=== PATIENT | male | born 1990 | race Two or more races ===

== ENCOUNTER 2016-08-28 18:45 | Emergency (ER) | payer SELFPAY ==
[~2016-08-28] VITALS: Ht 172.7 cm; Wt 86.2 kg
[2016-08-28 18:37] VITALS: BP 113/72
[~2016-08-28 18:45] MED LIST: KEPPRA500 M4 ORAL
[2016-08-28] MEDS ORDERED: Ketorolac 30mg Inj IV ONE (19:00)
[2016-08-28] MEDS ORDERED: LORazepam Inj 2mg/ml 1ml IV ONE (19:00)
[2016-08-28] MEDS ORDERED: levETIRAcetam 500 MG in D5W 110 ML IVPB ONE (19:00)
[2016-08-28 19:11] LABS: BASOPHILS % (AUTO) 1.3 % (0.0-2.0); EOSINOPHILS % (AUTO) 0.2 % (0.0-3.0); LYMPHOCYTES % (AUTO) 10.5 % (20.0-45.0); MEAN CORPUSCULAR HEMOGLOBIN 30.7 PG (27.0-31.0); MEAN CORPUSCULAR HGB CONC 33.9 G/DL (32.0-36.0); MEAN CORPUSCULAR VOLUME 90 FL (80-99); MEAN PLATELET VOLUME 7.9 FL (6.5-10.1); MONOCYTES % (AUTO) 3.8 % (1.0-10.0); NEUTROPHILS % (AUTO) 84.3 % (45.0-75.0); PLATELET COUNT 286 K/UL (150-450); RED BLOOD COUNT 5.23 M/UL (4.70-6.10); WHITE BLOOD COUNT 14.1 K/UL (4.8-10.8)
[2016-08-28 19:25] LABS: ALANINE AMINOTRANSFERASE 10 U/L (3-41); ALBUMIN/GLOBULIN RATIO 1.6 (1.0-2.7); ASPARTATE AMINO TRANSFERASE 17 U/L (5-40); CHLORIDE 93 mEQ/L (98-107); CREATININE 1.2 mg/dL (0.7-1.2); GLOMERULAR FILTRATION RATE > 60 mL/min (>60); HEMOLYSIS 38; POTASSIUM 5.1 mEQ/L (3.4-4.9); SODIUM 136 mEQ/L (135-145); TOTAL PROTEIN 7.8 g/dL (6.6-8.7)
--- NOTE | 2016-08-28 19:36 | Emergency Room Report ---
History of Present Illness General Chief Complaint: Seizure Source: Patient, EMS Present Illness HPI Patient presents with seizure activity He reports his last seizure was about 2 weeks ago He associates his seizures with stressful situations Reports that again this happened earlier today at work Patient states that he seen multiple neurologists and has had several EEGs And multiple imaging studies Denies any chest pain or shortness of breath Had a mild 3/10 pounding headache on the right side at this time He reports having a CAT scan on his last visit to the ER as well Denies any focal weakness Patient was taking Keppra previously but is not taking any antiepileptics at this time Allergies: Coded Allergies: No Known Allergies (Unverified , 08/28/16) Patient History Past Medical History: see triage record Pertinent Family History: none Reviewed Nursing Documentation: PMH: Agreed, PSxH: Agreed Nursing Documentation-PMH Hx Seizures: Yes Review of Systems All Other Systems: negative except mentioned in HPI Physical Exam Vital Signs Date Time Temp Pulse Resp B/P Pulse Ox O2 Delivery O2 Flow Rate FiO2 08/28/16 18:27 98 18 133/79 98 Room Air 08/28/16 18:37 97.8 Sp02 EP Interpretation: reviewed, normal General Appearance: well appearing, no apparent distress Head: normocephalic, atraumatic Eyes: bilateral eye EOMI, bilateral eye PERRL ENT: hearing grossly normal, normal pharynx, TMs + canals normal, uvula midline Neck: full range of motion, supple, no meningismus, no bony tend Respiratory: lungs clear, normal breath sounds, no rhonchi, no respiratory distress, no retraction, no accessory muscle use Cardiovascular #1: normal peripheral pulses, regular rate, rhythm, no edema, no gallop, no JVD, no murmur Gastrointestinal: normal bowel sounds, non tender, soft, no mass, no organomegaly, non-distended, no guarding, no hernia, no pulsatile mass, no rebound Genitourinary: no CVA tenderness Musculoskeletal: normal inspection Neurologic: oriented x3, responsive, 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, motor strength/ tone normal, sensory intact Psychiatric: mood/affect normal Skin: palpation normal, abrasions - right finger Lymphatic: normal inspection, no adenopathy Medical Decision Making Diagnostic Impression: Primary Impression: Seizure disorder ER Course Patient reports having multiple CAT scan imaging recently just says 2 weeks ago This was therefore not obtained today the patient has GCS 15 awake and alert has no focality to his exam Patient is also not on any antiepileptic medications at this time I discussed with him that he is not allowed to drive or operate heavy machinery Patient verbalizes understanding of this He did initially state that his seizures appear to be able to be controlled and that he feels they are stress-induced however DMV report has been faxed and the patient is aware of the consequences Please note the patient did have some mild dehydration on his blood work was given over 1-1/2 L of IV hydration Labs Test 08/28/16 19:00 White Blood Count 14.1 K/UL (4.8-10.8) Red Blood Count 5.23 M/UL (4.70-6.10) Hemoglobin 16.0 G/DL (14.2-18.0) Hematocrit 47.3 % (42.0-52.0) Mean Corpuscular Volume 90 FL (80-99) Mean Corpuscular Hemoglobin 30.7 PG (27.0-31.0) Mean Corpuscular Hemoglobin Concent 33.9 G/DL (32.0-36.0) Red Cell Distribution Width 11.0 % (11.6-14.8) Platelet Count 286 K/UL (150-450) Mean Platelet Volume 7.9 FL (6.5-10.1) Neutrophils (%) (Auto) 84.3 % (45.0-75.0) Lymphocytes (%) (Auto) 10.5 % (20.0-45.0) Monocytes (%) (Auto) 3.8 % (1.0-10.0) Eosinophils (%) (Auto) 0.2 % (0.0-3.0) Basophils (%) (Auto) 1.3 % (0.0-2.0) Sodium Level 136 mEQ/L (135-145) Potassium Level 5.1 mEQ/L (3.4-4.9) Chloride Level 93 mEQ/L (98-107) Carbon Dioxide Level 14 mEQ/L (20-30) Anion Gap 29 (5-15) Blood Urea Nitrogen 15 mg/dL (7-23) Creatinine 1.2 mg/dL (0.7-1.2) Estimat Glomerular Filtration Rate > 60 mL/min (>60) Glucose Level 200 mg/dL (74-106) Calcium Level 10.0 mg/dL (8.6-10.2) Total Bilirubin 0.9 mg/dL (0.0-1.2) Aspartate Amino Transf (AST/SGOT) 17 U/L (5-40) Alanine Aminotransferase (ALT/SGPT) 10 U/L (3-41) Alkaline Phosphatase 107 U/L (40-129) Total Protein 7.8 g/dL (6.6-8.7) Albumin 4.9 g/dL (3.5-5.2) Globulin 2.9 g/dL Albumin/Globulin Ratio 1.6 (1.0-2.7) Rhythm Strip Diag. Results EP Interpretation: yes Rate: 77 Rhythm: NSR, no PVC's, no ectopy Last Vital Signs Date Time Temp Pulse Resp B/P Pulse Ox O2 Delivery O2 Flow Rate FiO2 08/28/16 18:42 111 13 Room Air 08/28/16 18:37 97.8 113/72 99 Status: improved Disposition: HOME, SELF-CARE Condition: Improved Additional Instructions: Patient is provided with the discharge instructions notified to follow up with primary doctor in the next 2-3 days otherwise return to the er with any worsening symptoms. OLEGARIO VASQUEZ D.O. Aug 28, 2016 19:35
[2016-08-28 19:45] LABS: ANION GAP 29 (5-15); CARBON DIOXIDE 14 mEQ/L (20-30)
[2016-08-28 20:36] VITALS: BP 119/81
[2016-08-28 21:13] VITALS: BP 119/81
== END 2016-08-28 21:40 | disposition home or self-care (01) ==
LOC: EDBD 18:45 → EMR 21:32
DX: G40.909 Epilepsy, unspecified, not intractable, without status epilepticus (principal); R51 Headache
CPT/HCPCS: 36415; 80053; 82962; 85025; 96374; 96375; 99284; J1885